=== PATIENT | female | born 1995 | race Caucasian/White ===

== ENCOUNTER → 2022-06-06 | Outpatient (REF) | payer OTHER ==
[2022-06-07 12:44] LABS: FREE T4 0.92 NG/DL (0.76-1.46); THYROID STIMULATING HORMONE 1.96 uIU/ML (0.358-3.740)
== END ==
LOC: M SFHCLERA 15:13
PROVIDERS: ATTEND Student in an Organized Health Care Education/Training Program
DX: E03.9 Hypothyroidism, unspecified (principal); Z01.84 Encounter for antibody response examination
CPT/HCPCS: 84439; 84443; 86317; G0463

== ENCOUNTER → 2022-10-25 | Outpatient (CLI) | payer OTHER ==
[2022-10-25 12:41] LABS: APPEARANCE, URINE CLOUDY (CLEAR); BACTERIA, URINE AUTO NEGATIVE (NEGATIVE); BILIRUBIN, URINE AUTO NEGATIVE (NEGATIVE); BLOOD, URINE BLOOD NEGATIVE (NEGATIVE); COLOR, URINE YELLOW (YELLOW); GLUCOSE, URINE (UA) AUTO NEGATIVE (NEGATIVE); KETONE, URINE AUTO NEGATIVE (NEGATIVE); LEUKOCYTE ESTERASE, URINE AUTO 3+ (NEGATIVE); MUCUS, URINE SMALL (NEGATIVE); NITRITE, URINE AUTO NEGATIVE (NEGATIVE); PROTEIN, URINE AUTO NEGATIVE (NEGATIVE); RBC, URINE AUTO 0 /HPF (0-3); SQUAMOUS EPITHELIAL CELL UR AU 20 /HPF (0-6); UROBILINOGEN, URINE AUTO 0.2 mg/dL (0.0-2.0); WBC, URINE AUTO 6 /HPF (0-3)
[2022-10-25 12:52] LABS: BASO # 0.1 10^3/uL (0.0-0.2); BASO % 0.8 % (0.0-1.0); EOS % 0.6 % (0.0-3.0); HEMOGLOBIN 15.2 g/dl (12.0-15.5); LYMPH # 1.6 10^3/uL (1.5-5.0); LYMPH % 23.3 % (24.0-44.0); MEAN CORPUSCULAR HEMOGLOBIN 31.3 pg (27.0-33.0); MEAN CORPUSCULAR VOLUME 94.7 fl (80.0-96.0); MONO # 0.4 10^3/uL (0.0-0.8); MONO % 6.2 % (2.0-8.0); NEUTROPHILS # 4.6 10^3/uL (1.5-8.5); NEUTROPHILS % 68.6 % (36.0-66.0); PLATELET COUNT, AUTOMATED 231 10^3/uL (150-450); RED BLOOD COUNT 4.86 10^6/uL (4.00-5.40); WHITE BLOOD COUNT 6.7 10^3/uL (4.0-10.0)
[2022-10-25 13:01] LABS: ERYTHROCYTE SEDIMENTATION RATE 15 mm/hr (0-20)
[2022-10-25 13:03] LABS: INR 0.92; PROTHROMBIN TIME 12.6 SECONDS (12.5-14.5)
[2022-10-25 13:04] LABS: PARTIAL THROMBOPLASTIN TIME 28.4 SECONDS (24.8-34.2)
[2022-10-25 13:20] LABS: IRON (FE) 131 UG/DL (50-170); PERCENT SATURATION 38.5 % (13.2-45.0); TOTAL IRON BINDING CAPACITY 340 UG/DL (250-425)
[2022-10-25 15:03] LABS: ALBUMIN 4.1 G/DL (3.2-5.2); ALKALINE PHOSPHATASE 60 U/L (46-116); ALT/SGPT 39 U/L (7.0-40); AST/SGOT 23 U/L (<34); BILIRUBIN,TOTAL 0.4 MG/DL (0.3-1.2); BLOOD UREA NITROGEN 11 MG/DL (9-23); CALCIUM LEVEL 8.9 MG/DL (8.5-10.1); CARBON DIOXIDE LEVEL 27 MMOL/L (20-31); CHLORIDE LEVEL 103 MMOL/L (98-107); FERRITIN 30.7 NG/ML (7.3-270.7); GLUCOSE, FASTING 93 MG/DL (60-100); POTASSIUM SERUM 3.8 MMOL/L (3.5-5.1); SODIUM LEVEL 139 MMOL/L (136-145); TOTAL PROTEIN 7.2 G/DL (5.7-8.2); VITAMIN B12 LEVEL 388 PG/ML (211-911)
[2022-10-25 19:55] LABS: CREATININE, URINE 190.3 MG/DL; MAU/CREAT RATIO 4.2 MCG/MG (0.0-30.0)
[2022-10-25 20:29] LABS: CREATININE FOR GFR 0.92 MG/DL (0.55-1.30); GLOMERULAR FILTRATION RATE > 60.0 (>60)
== END ==
LOC: M WUC 10:12
PROVIDERS: ATTEND Family Medicine
DX: R31.9 Hematuria, unspecified (principal); R04.0 Epistaxis; T14.8XXA Other injury of unspecified body region, initial encounter; R58 Hemorrhage, not elsewhere classified; K62.5 Hemorrhage of anus and rectum; M54.42 Lumbago with sciatica, left side; R20.0 Anesthesia of skin
CPT/HCPCS: 36415; 72114; 80053; 81001; 82043; 82607; 82728; 82746; 83550; 85025; 85610; 85652; 85730; 86140; 87086; G0463

== ENCOUNTER 2023-06-26 10:55 | Inpatient (IN) | payer OTHER ==
[2023-06-26] VITALS (8 sets, daily range): BP systolic 123–141; BP diastolic 61–88
[~2023-06-26] VITALS: Ht 162.6 cm; Wt 100.7 kg
[~2023-06-26 10:55] MED LIST: BUPR75TA5; CALC500T60 PO; LEVO75TA4 PO; TRAZ-252
[2023-06-26] MEDS ORDERED: LACTATED RINGER'S 1000 ML IV STA (11:16)
[2023-06-26] MEDS ORDERED: CARBOPROST TROMETHAMINE 250 MCG/ML AMP IM PRN (11:20)
[2023-06-26] MEDS ORDERED: METHYLERGONOVINE MALEATE 0.2MG/ML 1ML VIAL IM PRN (11:20)
[2023-06-26] MEDS ORDERED: OXYTOCIN DRIP 30 UNITS in IV 1 EA IV PRN (11:20)
[2023-06-26] MEDS ORDERED: LIDOCAINE 1% MDV 20ML VIAL INFIL PRN (11:20)
[2023-06-26] MEDS ORDERED: TRANEXAMIC ACID INJection 1,000 MG in NS 100 ML IV PRN (11:20)
[2023-06-26] MEDS ORDERED: ACET325C5 PO (12:00)
[2023-06-26] MEDS ORDERED: PRENTAB9 PO (12:00)
[2023-06-26] MEDS ORDERED: OMEP10CASR PO (12:00)
[2023-06-26] MEDS ORDERED: HOME MED LIST COMPLETE! XX SCH (12:00)
[2023-06-26 12:19] LABS: HEMATOCRIT 32.6 % (36.0-47.0); HEMOGLOBIN 10.4 g/dl (12.0-15.5); MEAN CORPUSCULAR HEMOGLOBIN 28.6 pg (27.0-33.0); MEAN CORPUSCULAR HGB CONC 31.9 g/dl (32.0-36.5); MEAN CORPUSCULAR VOLUME 89.6 fl (80.0-96.0); PLATELET COUNT, AUTOMATED 184 10^3/uL (150-450); RED BLOOD COUNT 3.64 10^6/uL (4.00-5.40); WHITE BLOOD COUNT 8.6 10^3/uL (4.0-10.0)
[2023-06-26] MEDS: miSOPROStol 50MCG 1/2 TABLET PO SCH ×2 (12:47→20:27)
[2023-06-26] MEDS ORDERED: OMEPRAZOLE 20MG CAP PO SCH (21:00)
[2023-06-26] MEDS ORDERED: buPROPion 75 MG TAB PO SCH (21:00)
[2023-06-26] MEDS ORDERED: OXYTOCIN DRIP 30 UNITS in IV 1 EA IV SCH (21:05)
[2023-06-26] MEDS ORDERED: LEVOTHYROXINE 75MCG TABLET (0.075MG) PO SCH (23:00)
[2023-06-27] VITALS (16 sets, daily range): BP systolic 109–140; BP diastolic 59–91
[2023-06-27] MEDS: LR 1,000 ML IV SCH ×2 (01:43→09:35)
== END 2023-06-27 13:35 | disposition home or self-care (01) | DRG 833 ==
LOC: M LDI 10:55
PROVIDERS: ADMIT Advanced Practice Midwife; ATTEND Advanced Practice Midwife
DX: O61.0 Failed medical induction of labor (principal); Z3A.39 39 weeks gestation of pregnancy; E03.9 Hypothyroidism, unspecified; O99.283 Endocrine, nutritional and metabolic diseases complicating pregnancy, third trimester; F41.9 Anxiety disorder, unspecified; F32.A Depression, unspecified; O99.343 Other mental disorders complicating pregnancy, third trimester; Z79.899 Other long term (current) drug therapy; Z88.5 Allergy status to narcotic agent; Z87.891 Personal history of nicotine dependence

== ENCOUNTER 2023-07-07 02:51 | Inpatient (IN) | payer OTHER ==
[2023-07-07] VITALS (8 sets, daily range): BP systolic 127–143; BP diastolic 72–91; O2SAT 97–98
[~2023-07-07] VITALS: Ht 162.6 cm; Wt 102.8 kg
[~2023-07-07 02:51] MED LIST changes: +ACET325C5 PO; +OMEP10CASR PO; +PRENTAB9 PO
[2023-07-07] MEDS ORDERED: HOME MED LIST COMPLETE! XX SCH (03:00)
[2023-07-07] MEDS ORDERED: OXYTOCIN INJ 10UNITS/ML 1ML VIAL As Ordered ONE (04:55)
[2023-07-07] MEDS ORDERED: OXYTOCIN INJ 10UNITS/ML 1ML VIAL IM ONE (05:30)
[2023-07-07] MEDS ORDERED: LIDOCAINE 1% MDV 20ML VIAL IM ONE (05:30)
[2023-07-07] MEDS ORDERED: LIDOCAINE 1% MDV 20ML VIAL As Ordered ONE (05:31)
[2023-07-07] MEDS ORDERED: LIDOCAINE 1% MDV 20ML VIAL SC ONE (05:40)
[2023-07-07] MEDS ORDERED: LIDOCAINE 1% MDV 20ML VIAL INFIL PRN (05:50)
[2023-07-07] MEDS ORDERED: OXYTOCIN INJ 10UNITS/ML 1ML VIAL IM PRN (05:50)
[2023-07-07] MEDS ORDERED: CARBOPROST TROMETHAMINE 250 MCG/ML AMP IM PRN (05:50)
[2023-07-07] MEDS ORDERED: METHYLERGONOVINE MALEATE 0.2MG/ML 1ML VIAL IM PRN (05:50)
[2023-07-07] MEDS ORDERED: OXYTOCIN DRIP 30 UNITS in IV 1 EA IV PRN (05:50)
[2023-07-07] MEDS ORDERED: RHOGAM 300MCG (1500IU) INJ IM SCH (06:00)
[2023-07-07] MEDS ORDERED: IBUPROFEN 600MG TAB PO PRN (06:00)
[2023-07-07] MEDS ORDERED: ACETAMINOPHEN TAB 650MG DOSE (2X325MG) PO PRN (06:00)
[2023-07-07] MEDS ORDERED: ANUSOL HC CREAM 30GM TOP PRN (06:00)
[2023-07-07] MEDS: IBUPROFEN 800 MG TAB PO PRN ×3 (07:13→21:47)
[2023-07-07] MEDS: DIBUCAINE 1% OINTMENT 30GM TOP PRN ×2 (08:23→21:48)
[2023-07-07] MEDS: DOCUSATE SODIUM 100MG CAPSULE PO PRN ×2 (08:23→19:52)
[2023-07-07] MEDS: PRENATAL VITAMINS CHEWABLE TABLET PO SCH (08:30)
[2023-07-07] MEDS: ACETAMINOPHEN 500 MG TAB PO PRN ×2 (14:42→19:55)
[2023-07-07] MEDS ORDERED: buPROPion 75 MG TAB PO SCH (21:00)
[2023-07-07] MEDS ORDERED: LEVOTHYROXINE 75MCG TABLET (0.075MG) PO SCH (21:00)
[2023-07-07] MEDS ORDERED: OMEPRAZOLE 20MG CAP PO SCH (21:00)
[2023-07-07] MEDS ORDERED: traZODone 50 MG TAB PO SCH (21:00)
[2023-07-08 05:44] VITALS: BP 135/59; O2SAT 100
[2023-07-08] MEDS: PRENATAL VITAMINS CHEWABLE TABLET PO SCH (08:10)
[2023-07-08] MEDS: IBUPROFEN 800 MG TAB PO PRN ×2 (08:10→16:07)
[2023-07-08] MEDS ORDERED: DOCUSATE SODIUM 100MG CAPSULE PO SCH (09:00)
[2023-07-08] MEDS: ACETAMINOPHEN 500 MG TAB PO PRN (10:22)
[2023-07-08 14:20] VITALS: BP 122/78
[2023-07-08] MEDS ORDERED: CALCIUM CARBONATE 500 MG CHEW U/D PO PRN (14:30)
[2023-07-08] MEDS ORDERED: INFLUENZA QUADRIVALENT PF VACCINE 0.5ML SYRINGE IM.IMMUN ONE (16:00)
[2023-07-08] MEDS: DIBUCAINE 1% OINTMENT 30GM TOP PRN (16:21)
[2023-07-09] MEDS ORDERED: MEASLES,MUMPS,RUBELLA VACCINE INJ (MMR-II) SC.IMMUN ONE (09:00)
== END 2023-07-08 18:03 | disposition home or self-care (01) | DRG 807 ==
LOC: M LDO 02:51 → M LDI 03:20 → M OBS 07:52
PROVIDERS: ADMIT Obstetrics & Gynecology; ATTEND Obstetrics & Gynecology
PROC: 10E0XZZ Delivery of Products of Conception, External Approach (ICD-10-PCS; principal; 2023-07-07)
PROC: 0HQ9XZZ Repair Perineum Skin, External Approach (ICD-10-PCS; 2023-07-07)
DX: O48.0 Post-term pregnancy (principal); Z37.0 Single live birth; Z3A.41 41 weeks gestation of pregnancy; Z88.5 Allergy status to narcotic agent; E03.9 Hypothyroidism, unspecified; O99.284 Endocrine, nutritional and metabolic diseases complicating childbirth; O70.0 First degree perineal laceration during delivery